=== PATIENT | male | born 1930 | race Hispanic/Latino ===

== ENCOUNTER 2018-08-03 10:34 | Outpatient (CLI) | payer MEDICARE | END 2018-08-03 10:35 | disposition home or self-care (01) | LOC: LAB 10:34 ==

== ENCOUNTER 2018-08-15 11:56 | Emergency (ER) | payer MEDICARE ==
[2018-08-15 11:57] VITALS: BMI 28.8
[2018-08-15 12:06] VITALS: RESP 18
[2018-08-15] MEDS ORDERED: Sodium Chloride 0.9% 1,000 ML IV SCH (12:30)
--- NOTE | 2018-08-15 12:31 | ED PDOC ---
Arrival/HPI - General Historian: Patient - History of Present Illness Narrative History of Present Illness (Text): 08/15/18 12:26 CC: abdominal pain HPI: 88 yo male w/ PMH of CAD w/ CABG and stent placements, carotid endarterectomy, hernia, and prostate cancer with radiation treatment completed comes to ED for evaluation of abdominal pain. Patient states the pain started yesterday afternoon with no inciting event. Patient states that the pain stayed for hours and was very severe. Patient states the pain was a 9/10 for which he took no medications yesterday. Patient states since coming to the hospital the pain has improved to a 5/10 and is almost non-existent if he is at rest. Patient reports no similar episodes in the past. Denies sick contacts. Denies fevers, chills, chest pain, sob, n/v, constipation or diarrhea, and dysuria. Time/Duration: 24 hours Symptom Onset: Sudden Symptom Course: Improving Quality: Cramping Severity Level: 5 Activities at Onset: Rest <Luan Dunn - Last Filed: 08/15/18 14:29> <Christian Ponce - Last Filed: 08/15/18 20:24> - General Chief Complaint: Abdominal Pain Time Seen by Provider: 08/15/18 12:02 Past Medical History - Provider Review Nursing Documentation Reviewed: Yes - Infectious Disease Hx of Infectious Diseases: None - Tetanus Immunization Tetanus Immunization: Unknown - Cardiac Hx Cardiac Disorders: Yes (CAD) Hx Angina: Yes Hx Circulatory Problems: Yes Hx [place]: Yes (1979) Hx Hypertension: Yes Hx Pacemaker: No Hx Peripheral Edema: Yes Hx Peripheral Vascular Disease: Yes Other/Comment: cabg x3. carotid endarerectomy. CORONARY STENTS - Pulmonary Hx Respiratory Disorders: No - Neurological Hx Paralysis: No - HEENT Hx HEENT Disorder: Yes Hx Cataracts: Yes (BILAT IOL) - Renal Hx Renal Disorder: No - Endocrine/Metabolic Hx Endocrine Disorders: No - Hematological/Oncological Hx Blood Disorders: No - Integumentary Hx Dermatological Disorder: No - Musculoskeletal/Rheumatological Hx Musculoskeletal Disorders: No - Gastrointestinal Hx Gastrointestinal Disorders: Yes Hx Gall Bladder Disease: Yes - Genitourinary/Gynecological Hx Genitourinary Disorders: Yes Hx Bladder Cancer: Yes (DX: BLADDER CANCER) Hx Hematuria: Yes Hx Prostate Problems: Yes Other/Comment: Hematuria - Psychiatric Hx Psychophysiologic Disorder: No Hx Substance Use: No - Surgical History Hx Angiogram: Yes Hx Angioplasty: Yes Hx Cataract Extraction: Yes (BILAT. IOL) Hx Cardiac Catheterization: Yes Hx Carotid Endarterectomy: Yes Hx Cholecystectomy: Yes Hx Coronary Artery Bypass Graft: Yes Hx Coronary Stent: Yes Hx Open Heart Surgery: Yes (1979, 1999) Other/Comment: Cysto with bladder fulguration several times. - Anesthesia Hx Anesthesia: Yes Hx Anesthesia Reactions: No Hx Malignant Hyperthermia: No - Suicidal Assessment Feels Threatened In Home Enviroment: No <Luan Dunn - Last Filed: 08/15/18 14:29> Family/Social History - Physician Review Nursing Documentation Reviewed: Yes Family/Social History: No Known Family HX Smoking Status: Former Smoker Hx Alcohol Use: No Hx Substance Use: No Hx Substance Use Treatment: No <Luan Dunn - Last Filed: 08/15/18 14:29> Allergies/Home Meds <Luan Dunn - Last Filed: 08/15/18 14:29> <Christian Ponce - Last Filed: 08/15/18 20:24> Allergies/Adverse Reactions: Allergies Penicillins Allergy (Intermediate, Verified 08/15/18 12:06) RASH Home Medications: Home Meds Medication Instructions Recorded Confirmed Losartan [Cozaar] 100 mg PO DAILY 09/04/13 08/15/18 Simvastatin 40 mg PO HS 09/04/13 08/15/18 Finasteride 5 mg PO DAILY 02/21/14 08/15/18 Aspirin [Ecotrin] 1 tab PO DAILY 01/13/16 08/15/18 Clopidogrel [Plavix] 1 tab PO DAILY 01/13/16 08/15/18 Isosorbide Mononitrate [Imdur] 1 tab PO DAILY 01/13/16 08/15/18 Review of Systems - Review of Systems Constitutional: Normal. absent: Fatigue, Weight Change, Fevers Eyes: Normal. absent: Vision Changes ENT: Normal. absent: Hearing Changes Respiratory: Normal. absent: SOB, Cough Cardiovascular: Normal. absent: Chest Pain, Palpitations Gastrointestinal: Abdominal Pain. absent: Normal, Constipation, Diarrhea, Nausea, Vomiting, Hematochezia Genitourinary Male: Normal. absent: Dysuria, Frequency, Hematuria Musculoskeletal: Normal. absent: Arthralgias, Back Pain Skin: Normal. absent: Rash, Pruritis Endocrine: Normal. absent: Diaphoresis, Polyuria Psychiatric: Normal. absent: Anxiety, Depression <Shaun,Madaser - Last Filed: 08/15/18 14:29> Physical Exam Vital Signs Temp Pulse Resp BP Pulse Ox 08/15/18 11:59 98.4 F 77 18 149/73 96 Temperature: Afebrile Blood Pressure: Normal Pulse: Regular Respiratory Rate: Normal Appearance: Positive for: Well-Appearing, Non-Toxic, Comfortable Pain Distress: Mild Mental Status: Positive for: Alert and Oriented X 3 - Systems Exam Head: Present: Atraumatic, Normocephalic. No: Tenderness Pupils: Present: PERRL. No: Sluggish, Non-Reactive Extroacular Muscles: Present: EOMI. No: Gaze Palsy Mouth: Present: Moist Mucous Membranes. No: Dry Neck: Present: Normal Range of Motion. No: Meningeal Signs, JVD Respiratory/Chest: Present: Good Air Exchange. No: Clear to Auscultation, Respiratory Distress, Accessory Muscle Use Cardiovascular: Present: Regular Rate and Rhythm, Normal S1, S2. No: Murmurs Abdomen: Present: Tenderness, Normal Bowel Sounds. No: Distention, Peritoneal Signs, Rebound, Guarding Upper Extremity: Present: Normal Inspection. No: Cyanosis, Edema Lower Extremity: Present: Normal Inspection. No: Edema Neurological: Present: GCS=15, CN II-XII Intact, Speech Normal Skin: Present: Warm, Dry, Normal Color. No: Rashes Psychiatric: Present: Alert, Oriented x 3, Normal Insight, Normal Concentration <ShaunMadaser - Last Filed: 08/15/18 14:29> Vital Signs Temp Pulse Resp BP Pulse Ox 08/15/18 14:54 98.3 F 08/15/18 14:25 99 08/15/18 14:24 67 18 172/76 H 94 L 08/15/18 11:59 98.4 F 77 18 149/73 96 <Christian Ponce - Last Filed: 08/15/18 20:24> Medical Decision Making ED Course and Treatment: 08/15/18 12:36 Impression 88 yo male w/ PMH of CAD w/ CABG and stent placements, carotid endarterectomy, hernia, and prostate cancer with radiation treatment completed comes to ED for evaluation of abdominal pain. Plan -CBC -CMP -Lipase -Troponin -EKG (NSR) -PT/PTT -U/A -Urine cx -NS @ 100 -CT abd/pelvis with IV contrast Prior Visits All prior documentation and lab work reviewed prior to this evaluation Progress Notes lab studies with elevated lipase pending imaging study to confirm pancreatic etiology for abdominal pain 08/15/18 14:29 CT abdomen/pelvis confirms acute pancreatitis Spoke with patient about diagnosis and treatment at length. Patient prefers to be discharged as his pain has gone down and will watch his alcohol intake and his diet for next few days. Patient will be given Zofran and Pepcid for discharge. Re-evaluation Time: 14:32 Reassessment Condition: Re-examined, Improved - Lab Interpretations Lab Results: 08/15/18 12:33 08/15/18 12:33 Lab Results 08/15/18 13:20: Urine Color Yellow, Urine Appearance Clear, Urine pH 6.0, Ur Specific [place] 1.025, Urine Protein Negative, Urine Glucose (UA) Negative, Urine Ketones Negative, Urine Blood Negative, Urine Nitrate Negative, Urine Bili knutson Negative, Urine Urobilinogen 0.2, Ur Leukocyte Esterase Negative 08/15/18 12:33: Sodium 142, Potassium 4.0, Chloride 107, Carbon Dioxide 25, Anion Gap 13, BUN 15, Creatinine 0.9, Est GFR ( Amer) > 60, Est GFR (Non- Af Amer) > 60, Random Glucose 108, Calcium 9.4, Magnesium 1.8, Total Bilirubin 0.6, AST 22, ALT 17, Alkaline Phosphatase 70, Lactate Dehydrogenase 483, Total Creatine Kinase 81, Troponin I < 0.01, Total Protein 7.3, Albumin 4.0, Globulin 3.3, Albumin/Globulin Ratio 1.2, Lipase 1023 H 08/15/18 12:33: PT 13.6 H, INR 1.20, APTT 32.7 08/15/18 12:33: WBC 6.7, RBC 4.41, Hgb 13.3 L, Hct 41.2 L, MCV 93.4 D, MCH 30.2, MCHC 32.3, RDW 13.4, Plt Count 189, MPV 11.6 H, Neut % (Auto) 68.2 H, Lymph % (Auto) 19.1 L, O'Brien % (Auto) 11.9 H, Eos % (Auto) 0.7 L, Baso % (Auto) 0.1, Lymph # (Auto) 1.3, O'Brien # (Auto) 0.8 H, Eos # (Auto) 0.1, Baso # (Auto) 0.01, Absolute Neuts (auto) 4.56 I have reviewed the lab results: Yes - RAD Interpretation Radiology Orders: Radiology Results Abdomen/Pelvis CT 08/15/18 12:30 IMPRESSION: Acute pancreatitis primarily involving the head/neck region. No necrosis, hemorrhage or pseudocyst. Trace enhancement of the CBD, likely reactive versus cholangitis. Clinical correlation is recommended. Jewelry Sales Representative: Radiologist - Medication Orders Current Medication Orders: Sodium Chloride (Sodium Chloride 0.9%) 1,000 mls @ 100 mls/hr IV .Q10H ROBERT <Luan Dunn - Last Filed: 08/15/18 14:29> - Lab Interpretations Lab Results: PT 13.6 SECONDS (9.4-12.5) H 08/15/18 12:33 INR 1.20 08/15/18 12:33 APTT 32.7 Seconds (26.9-38.3) 08/15/18 12:33 Troponin I < 0.01 ng/mL 08/15/18 12:33 Total Bilirubin 0.6 mg/dL (0.2-1.3) 08/15/18 12:33 AST 22 U/L (17-59) 08/15/18 12:33 ALT 17 U/L (7-56) 08/15/18 12:33 Alkaline Phosphatase 70 U/L (38-126) 08/15/18 12:33 Total Protein 7.3 g/dL (5.8-8.3) 08/15/18 12:33 Albumin 4.0 g/dL (3.0-4.8) 08/15/18 12:33 Globulin 3.3 gm/dL 08/15/18 12:33 Albumin/Globulin Ratio 1.2 (1.1-1.8) 08/15/18 12:33 Lipase 1023 U/L (23-300) H 08/15/18 12:33 Urine Color Yellow (YELLOW) 08/15/18 13:20 Urine Appearance Clear (CLEAR) 08/15/18 13:20 Urine pH 6.0 (4.7-8.0) 08/15/18 13:20 Ur Specific [place] 1.025 (1.005-1.035) 08/15/18 13:20 Urine Protein Negative mg/dL (<30 mg/dL) 08/15/18 13:20 Urine Glucose (UA) Negative mg/dL (NEGATIVE) 08/15/18 13:20 Urine Ketones Negative mg/dL (NEGATIVE) 08/15/18 13:20 Urine Blood Negative (NEGATIVE) 08/15/18 13:20 Urine Nitrate Negative (NEGATIVE) 08/15/18 13:20 Urine Bilirubin Negative (NEGATIVE) 08/15/18 13:20 Urine Urobilinogen 0.2 E.U./dL (<1 E.U./dL) 08/15/18 13:20 Ur Leukocyte Esterase Negative Mamta/uL (NEGATIVE) 08/15/18 13:20 - RAD Interpretation Radiology Orders: 08/15/18 12:30 ABD & PELVIS IV CONTRAST ONLY [CT] Stat - Medication Orders Current Medication Orders: Discontinued Medications Sodium Chloride (Sodium Chloride 0.9%) 1,000 mls @ 100 mls/hr IV .Q10H [facility] Last Admin: 08/15/18 12:37 Dose: 100 mls/hr eMAR Start Stop Document 08/15/18 12:37 MR (Rec: 08/15/18 12:37 MR [id number]) Intravenous Solution Start Date 08/15/18 Start Time 12:37 <Christian Ponce - Last Filed: 08/15/18 20:24> - PA / LITHOGRAPHIC GENERAL WORKER / Resident Statement KAYLA has reviewed & agrees with the documentation as recorded. KAYLA has examined the patient and agrees with the treatment plan. <Christian Ponce - Last Filed: 08/15/18 20:24> Disposition/Present on Arrival - Present on Arrival Any Indicators Present on Arrival: No History of DVT/PE: No History of Uncontrolled Diabetes: No Urinary Catheter: No History of Decub. Ulcer: No History Surgical Site Infection Following: None - Disposition Have Diagnosis and Disposition been Completed?: Yes Disposition Time: 14:33 Patient Plan: Discharge <Luan Dunn - Last Filed: 08/15/18 14:29> <Christian Ponce - Last Filed: 08/15/18 20:24> - Disposition Diagnosis: Pancreatitis, acute, Pancreatitis Disposition: HOME/ ROUTINE Condition: IMPROVED Discharge Instructions (ExitCare): Pancreatitis (DC) Additional Instructions: KING WHITTAKER, thank you for letting us take care of you today. The emergency medical care you received today was directed at your acute symptoms. If you were prescribed any medication, please fill it and take as directed. It may take several days for your symptoms to resolve. Return to the Emergency Department if your symptoms worsen, do not improve, or if you have any other problems. Please contact your doctor or call one of the physicians/clinics you have been referred to that are listed on the Patient Visit Information form that is included in your discharge packet. Bring any paperwork you were given at discharge with you along with any medications you are taking to your follow up visit. Our treatment cannot replace ongoing medical care by a primary care provider outside of the emergency department. Thank you for allowing the [facility] team to be part of your care today. Avoid alcohol for the next 4-5 days. Follow up with your primary care doctor in 3-4 days for re-evaluation. Return to the emergency room if you have any concerns. Prescriptions: Famotidine [Pepcid] 20 mg PO BID #14 tab Ondansetron ODT [Zofran ODT] 4 mg PO Q8 PRN #15 odt PRN Reason: Nausea/Vomiting Referrals: Christian Win MD [Primary Care Provider] - Follow up with primary Forms: [employer] (Djiboutian)
[2018-08-15 12:53] LABS: BASO # 0.01 K/mm3 (0.0-2.0); BASO % 0.1 % (0.0-3.0); EOS # 0.1 (0.0-0.7); EOS % 0.7 % (1.5-5.0); HEMOGLOBIN 13.3 g/dL (14.0-18.0); LYMPH # 1.3 (1.2-3.4); LYMPH % 19.1 % (22.0-35.0); MEAN CELL VOLUME 93.4 fl (80.0-105.0); MEAN CORPUSCULAR HEMOGLOBIN 30.2 pg (25.0-35.0); MEAN CORPUSCULAR HGB CONC 32.3 g/dl (31.0-37.0); MEAN PLATELET VOLUME 11.6 fl (7.0-11.0); MONO # 0.8 (0.1-0.6); MONO % 11.9 % (1.0-6.0); RBC 4.41 10^6/uL (3.5-6.1); RED CELL DISTRIBUTION WIDTH 13.4 % (11.5-14.5); WHITE BLOOD COUNT 6.7 10^3/uL (4.5-11.0)
[2018-08-15 13:01] LABS: INR 1.2; PARTIAL THROMBOPLASTIN TIME 32.7 Seconds (26.9-38.3); PROTHROMBIN TIME 13.6 SECONDS (9.4-12.5)
[2018-08-15 13:05] LABS: ALB/GLOB RATIO 1.2 (1.1-1.8); ALT/SGPT 17 U/L (7-56); AST/SGOT 22 U/L (17-59); BLOOD UREA NITROGEN 15 mg/dL (7-21); CALCIUM 9.4 mg/dL (8.4-10.5); GFR NON-AFRICAN AMERICAN > 60; LIPASE 1023 U/L (23-300)
[2018-08-15 13:15] LABS: TROPONIN I < 0.01 ng/mL
[2018-08-15 13:38] LABS: URINE BILIRUBIN NEGATIVE (NEGATIVE); URINE BLOOD NEGATIVE (NEGATIVE); URINE GLUCOSE (UA) NEGATIVE (NEGATIVE); URINE LEUKOCYTE ESTERASE NEGATIVE Leu/uL (NEGATIVE); URINE PROTEIN NEGATIVE mg/dL (<30 mg/dL); URINE UROBILINOGEN 0.2 E.U./dL (<1 E.U./dL)
[2018-08-15 13:42] LABS: URINE APPEARANCE CLEAR (CLEAR); URINE COLOR YELLOW (YELLOW)
--- NOTE | 2018-08-15 14:14 | CT ---
Date of service: 08/15/2018 PROCEDURE: CT Abdomen and Pelvis with contrast HISTORY: upper abdominal tenderness COMPARISON: None. TECHNIQUE: Contrast dose: 150 mL Omnipaque 350 Radiation dose: Total exam DLP = 1077.5 mGy-cm. This CT exam was performed using one or more of the following dose reduction techniques: Automated exposure control, adjustment of the mA and/or kV according to patient size, and/or use of iterative reconstruction technique. FINDINGS: LOWER THORAX: Prior sternotomy and CABG. Cardiomegaly. Coronary arterial and valvular calcifications. Dependent atelectasis. No focal consolidation or pleural effusion. LIVER: Hepatic steatosis. No gross lesion or ductal dilatation. GALLBLADDER AND BILE DUCTS: Prior cholecystectomy. Mild enhancement of CBD, possibly reactive. PANCREAS: Peripancreatic fluid primarily centered around the pancreatic head no gross lesion or ductal dilatation. SPLEEN: Unremarkable. ADRENALS: Unremarkable. No mass. KIDNEYS AND URETERS: Unremarkable. No hydronephrosis. No solid mass. VASCULATURE: Unremarkable. No aortic aneurysm. No aortic atherosclerotic calcification or mural plaque present. BOWEL: Unremarkable. No obstruction. No gross mural thickening. APPENDIX: No findings to suggest acute appendicitis. PERITONEUM: Trace fluid in the pelvis. No free air. LYMPH NODES: Unremarkable. No enlarged lymph nodes. BLADDER: Unremarkable. REPRODUCTIVE: Prostatomegaly. BONES: Degenerative changes. Grade 1 anterolisthesis of L4 on L5. No acute fracture. OTHER FINDINGS: None. IMPRESSION: Acute pancreatitis primarily involving the head/neck region. No necrosis, hemorrhage or pseudocyst. Trace enhancement of the CBD, likely reactive versus cholangitis. Clinical correlation is recommended.
[2018-08-15 14:25] VITALS: BP 172/76; PULSE 67
[2018-08-15 14:26] VITALS: O2SAT 99
[2018-08-15 14:55] VITALS: TEMP 98.3
--- NOTE | 2018-08-16 11:04 | CARD ---
APPROVED REPORT Date of service: 08/15/2018 EKG Measurement Heart [id number] <Conclusion> Normal sinus rhythm Nonspecific ST and T wave abnormality Abnormal ECG
== END 2018-08-15 14:56 | disposition home or self-care (01) ==
LOC: ED 11:56
DX: K85.90 Acute pancreatitis without necrosis or infection, unspecified (principal); I25.10 Atherosclerotic heart disease of native coronary artery without angina pectoris; I25.2 Old myocardial infarction; I10 Essential (primary) hypertension; Z85.46 Personal history of malignant neoplasm of prostate; Z95.1 Presence of aortocoronary bypass graft; Z95.5 Presence of coronary angioplasty implant and graft; Z87.891 Personal history of nicotine dependence
CPT/HCPCS: 74177; 80053; 81003; 82550; 83615; 83690; 83735; 84484; 85025; 85610; 85730; 87086; 93005; 99284; J7030; Q9967